=== PATIENT | female | born 1980 | race Two or more races ===

== ENCOUNTER 2016-04-07 15:07 | Emergency (ER) | payer MEDICAID ==
[~2016-04-07] VITALS: Ht 160 cm; Wt 66.7 kg
[2016-04-07 15:39] LABS: Basophils # (auto) 0 uL; Basophils % (auto) 0.3 % (0.0-2.0); Eosinophils # (auto) 0.1 uL; Eosinophils % (auto) 0.6 % (0.0-7.0); Hematocrit 40.6 % (36.0-46.0); Hemoglobin 13.5 g/dL (12.2-16.2); Lymphocytes # (auto) 1.7 uL; Lymphocytes % (auto) 17.9 % (10.0-50.0); Mean Corpuscular Hemoglobin 30.6 pg (28.0-32.0); Mean Corpuscular Hgb Conc. 33.3 g/dL (32.0-36.0); Mean Corpuscular Volume 92.1 fL (80.0-100.0); Mean Platelet Volume 9.5 fL (7.4-10.4); Monocytes # (auto) 0.4 uL; Monocytes % (auto) 4.4 % (0.0-12.0); Neutrophils # (auto) 7.3 uL; Neutrophils % (auto) 76.8 % (37.0-80.0); Platelet Count (auto) 215 10^3/uL (140-450); Red Cell Distribution Width 12.8 % (11.6-16.0); White Blood Cell 9.5 10^3/uL (4.4-10.8)
[2016-04-07 22:24] LABS: Albumin 4.1 g/dL (3.4-5.0); BUN/Creatinine Ratio 10.5; Bilirubin, Total 0.3 mg/dL (0.2-1.0); Calcium 8.7 mg/dL (8.5-10.1); Potassium 3.9 mmol/L (3.5-5.1); Total Protein 7.4 g/dL (6.4-8.2)
[2016-04-07 22:36] VITALS: BP 118/69
== END 2016-04-07 23:35 | disposition home or self-care (01) ==
LOC: ER 15:11
DX: O46.91 Antepartum hemorrhage, unspecified, first trimester (principal); Z3A.01 Less than 8 weeks gestation of pregnancy
CPT/HCPCS: 36415; 76801; 80053; 84702; 85025; 85049; 99285; J7030

== ENCOUNTER 2017-05-09 17:03 | Emergency (ER) | payer MEDICAID ==
[~2017-05-09] VITALS: Ht 160 cm; Wt 79.8 kg
[2017-05-10] MEDS ORDERED: MORPHINE SULFATE 4 MG/ML SYR/VIAL IM ONE (01:00)
[2017-05-10] MEDS ORDERED: ONDANSETRON HCL 4 MG/2 ML VIAL IM ONE (01:00)
[2017-05-10 03:04] VITALS: BP 117/78
== END 2017-05-10 04:55 | disposition home or self-care (01) ==
LOC: ER 17:05
DX: B34.9 Viral infection, unspecified (principal); M54.9 Dorsalgia, unspecified; M79.604 Pain in right leg; G89.29 Other chronic pain
CPT/HCPCS: 72125; 72131; 96372; 99284; J2270; J2405

== ENCOUNTER 2023-10-28 18:47 | Emergency (ER) | payer MEDICAID ==
[~2023-10-28] VITALS: Ht 167.6 cm; Wt 91.3 kg
[2023-10-28 19:15] VITALS: BP 130/79; PULSE 83; RESP 18; TEMP 97.9; O2SAT 96
[2023-10-28] MEDS ORDERED: ACET500T58 PO (20:05)
== END 2023-10-28 21:00 | disposition home or self-care (01) ==
LOC: ER 18:47
DX: S93.402A Sprain of unspecified ligament of left ankle, initial encounter (principal); S93.602A Unspecified sprain of left foot, initial encounter; X58.XXXA Exposure to other specified factors, initial encounter; Y93.89 Activity, other specified; Y92.89 Other specified places as the place of occurrence of the external cause; Y99.8 Other external cause status
CPT/HCPCS: 73610; 73630

== ENCOUNTER 2024-03-25 19:04 | Emergency (ER) | payer MEDICAID ==
[~2024-03-25] VITALS: Ht 157.5 cm; Wt 89.9 kg
[~2024-03-25 19:04] MED LIST: ACET500T58 PO
[2024-03-25] MEDS ORDERED: OSEL75CA5 PO (20:42)
[2024-03-25] MEDS ORDERED: PROM1SOL4 PO (20:42)
--- NOTE | 2024-03-25 20:43 | ED.PDOC ---
SOB-HPI HPI Comments This is a 43-year-old female presents to the ED chief complaint flu-like s ymptoms x1 day. Patient reports cough, nasal congestion, sore throat, and fever he is also in with her daughter with the same symptoms. Sibling at home also since symptoms. Chest pain, difficulty breathing, shortness of breath, arnav rrhea, or vomiting or abdominal pain. Chief Complaint: Flu like Time Seen by MD: 19:31 Primary Care Provider: UNKNOWN Reviewed notes: Nurses Notes, Medications, Allergies Information Source: Patient Mode of Arrival: Ambulatory Severity: Mild Past Medical History PAST MEDICAL HISTORY: Denies Surgical History: CIRCUIT RECORDER History: No Pertinent CIRCUIT RECORDER History Family History Family History: Unknown Social History Smoker: Non-Smoker Alcohol: Denies ETOH Use Drugs: Denies Drug Use Lives In: Home Constitutional: reports: fatigue, fever; denies: chills, diaphoresis, malaise, sweats, weakness, others EENTM: reports: nasal discharge; denies: blurred vision, double vision, ear bleeding, ear discharge, ear drainage, ear pain, ear ringing, eye pain, eye redness, hearing loss, mouth pain, mouth swelling, nose bleeding, nose congestion, nose pain, photophobia, tearing, throat pain, throat swelling, voice changes, others Respiratory: reports: cough; denies: hemoptysis, orthopnea, SOB at rest, shortness of breath, SOB with excertion, stridor, wheezing, others Cardiovascular: denies: chest pain, dizzy spells, diaphoresis, Dyspnea on exertion, edema, irregular heart beat, left arm pain, lightheadedness, palpitations, PND, syncope, others Gastrointestinal: denies: abdomen distended, abdominal pain, blood streaked bowels, constipated, diarrhea, dysphagia, difficulty swallowing, hematemesis, melena, nausea, poor appetite, poor fluid intake, rectal bleeding, rectal pain, vomiting, others Genitourinary: denies: abnormal vagina bleeding, burning, dyspareunia, dysuria, flank pain, frequency, hematuria, incontinence, pain, , vagina discharge, urgency, others Neurological: denies: dizziness, fainting, headache, left sided numbness, left sided weakness, numbness, paresthesia, pre-existing deficit, right sided numbness, right sided weakness, seizure, speech problems, tingling, tremors, weakness, others Musculoskeletal: denies: back pain, gout, joint pain, joint swelling, muscle pain, muscle stiffness, neck pain, others Integumetry: denies: bruises, change in color, change in hair/nails, dryness, laceration, lesions, lumps, rash, wounds, others Allergic/Immunocompromised: denies: Difficulty Healing, Frequent Infections, Hives, Itching, others Hematologic/Lymphatic: denies: anemia, blood clots, easy bleeding, easy bruising, swollen glands, others Endocrine: denies: excessive hunger, excessive sweating, excessive thirst, excessive urination, flushing, intolerance to cold, intolerance to heat, unexplained weight gain, unexplained weight loss, others Psychiatric: denies: anxiety, bipolar disorder, depression, hopeless, panic disorder, schizophrenia, sleepless, suicidal, others Physical Exam General Appearance: No Apparent Distress, Normal HEENT: Pharyngeal Erythema, TMs Normal Neck: Full Range of Motion, Non-Tender, Normal, Normal Inspection Respiratory: Chest Non-Tender, Lungs Clear, No Accessory Muscle Use, No Respiratory Distress, Normal Breath Sounds Cardiovascular: No Edema, No JVD, No Murmur, No Gallop, Normal Peripheral Pulses, Regular Rate/Rhythm Breast Exam: Deferred Gastrointestinal: No Organomegaly, Non Tender, No Pulsatile Mass, Normal Bowel Sounds, Soft Genitalia: Deferred Pelvic: Deferred Rectal: Deferred Extremities: Normal capillary refill, Normal inspection, Normal range of motion, Non-tender, No pedal edema Musculoskeletal : Apperance: Normal Neurologic: Alert, independent marketing consultant II-XII nml as Tested, No Motor Deficits, Normal Affect, Normal Mood, No Sensory Deficits Cerebellar Function: Normal Reflexes: Normal Skin: Dry, Normal Color, Warm Lymphatic: No Adenopathy Was a procedure done? Was a procedure done?: No Differential Dx Differential Diagnosis: Pneumonia, Sinusitis, Allergic Rhinitis, Otitis Media X-Ray, Labs, Meds, VS Vital Signs Date Time Temp Pulse Resp B/P (MAP) Pulse Ox O2 Delivery O2 Flow Rate FiO2 03/25/24 19:39 98.1 112 20 131/80 (97) 98 X-Ray, Labs, Meds, VS Comment Influenza we will start patient on Tamiflu advised to rest increase p.o. fluids [id number] Tylenol or Motrin as needed for the pain eating and fever per labeled dosing instructions ER return precautions given patient agrees with discharge plan of care. Time of 1ST Reevaluation: 20:40 Reevaluation 1ST: Improved Patient Education/Counseling: Diagnosis, Treatment, Prognosis, Need For Follow Up Family Education/Counseling: No Family Present Departure 1 Departure Time of Disposition: 20:40 Impression: Primary Impression: Influenza Disposition: HOME / SELF CARE / HOMELESS Condition: Stable e-Prescriptions Promethazine-Dm (Promethazine Dm 6.25-15 mg/5Ml) 1 Shanita Shanita 5 ML PO QID PRN for 3 Days, #60 ML Prov: NIMO BERRIOS 03/25/24 Oseltamivir Phosphate (Tamiflu) 75 Mg Cap 1 CAP PO BID for 5 Days, #10 CAP Prov: NIMO BERRIOS 03/25/24 Discharged With: Relative (Mother) Critical Care Note Critical Care Time?: No Stability Stability form required: No Heart Score Heart Score: Heart Score Response (Comments) Value History N/A 0 EKG N/A 0 Age <45 0 Risk Factors N/A 0 Troponin N/A 0 Total 0 NIMO BERRIOS Mar 25, 2024 20:42
[2024-03-25 21:00] VITALS: BP 117/76; PULSE 105; RESP 18; TEMP 99.3; O2SAT 96
== END 2024-03-25 21:02 | disposition home or self-care (01) ==
LOC: ER 19:04
DX: J11.1 Influenza due to unidentified influenza virus with other respiratory manifestations (principal); R07.9 Chest pain, unspecified; R19.7 Diarrhea, unspecified; R10.9 Unspecified abdominal pain; R11.10 Vomiting, unspecified